=== PATIENT | female | born 1955 | race Caucasian/White ===

== ENCOUNTER 2022-08-15 14:36 | Inpatient (IN) | payer MEDICARE, MEDICAID ==
[~2022-08-15] VITALS: Ht 165.1 cm; Wt 61.7 kg
[2022-08-15] MEDS ORDERED: SODIUM CHLORIDE 0.9% 1,000 ML IV ONE (15:15)
[2022-08-15 15:57] LABS: HEMATOCRIT. 25.8 % (36.0-48.0); HEMOGLOBIN. 8.3 g/dL (12.0-16.0); MEAN CORPUSCULAR HEMOGLOBIN 29.8 pg (28.0-32.0); MEAN CORPUSCULAR VOLUME 92.4 fL (81.0-99.0); MEAN PLATELET VOLUME 7.2 fl (7.4-10.4); PLATELET 262 x1000/uL (130-400); RED BLOOD CELL COUNT 2.79 mill/uL (4.2-5.4); RED CELL DISTRIBUTION WIDTH 19.9 % (11.6-14.6)
[2022-08-15 16:03] LABS: CHLORIDE 106 mEq/L (98-107)
[2022-08-15 17:24] LABS: CLARITY URINE TURBID (CLEAR); COLOR URINE ORANGE (YELLOW); KETONES URINE TRACE (NEGATIVE); LEUKOCYTE ESTERASE URINE 2+ (NEGATIVE); NITRITE URINE NEGATIVE (NEGATIVE); OCCULT BLOOD URINE 3+ (NEGATIVE); PH URINE 5.5 (4.5-8.0); PROTEIN URINE 3+ (NEGATIVE); SPECIFIC GRAVITY URINE 1.011 (1.005-1.030); UROBILINOGEN URINE 0.2 E.U./dL (0.2-1.0)
[2022-08-15] MEDS ORDERED: SODIUM CHLORIDE 0.9% 1000ML BAG (SEPSIS BOLUS) IV ONE ×2 (17:45→18:30)
[2022-08-15] MEDS ORDERED: CEFTRIAXONE 1GM PREMIX 50 ML IV NR ×2 (17:45→18:30)
[2022-08-15 18:24] LABS: CHLORIDE 108 mEq/L (98-107)
[2022-08-15] MEDS ORDERED: AZITHROMYCIN 500MG/250ML 250 ML IV NR (18:30)
[2022-08-15 18:41] LABS: INR 1.2; PROTHROMBIN TIME 12.7 sec (9.6-11.0)
[2022-08-15] MEDS ORDERED: SODIUM CHLORIDE 0.9% 1,950 ML IV SCH (18:45)
[2022-08-15 20:00] LABS: PLATELET ESTIMATE NORMAL
[2022-08-15] MEDS ORDERED: CLONIDINE 0.1MG TABLET PO PRN (23:30)
[2022-08-16] VITALS (7 sets, daily range): BP systolic 109–144; BP diastolic 48–76
[2022-08-16 00:16] LABS: TOTAL IRON BINDING CAPACITY 91 ug/dL (250-450)
[2022-08-16] MEDS ORDERED: DEXTROSE 50% WATER 50ML SYRINGE IV PRN (01:00)
[2022-08-16] MEDS: ACETAMINOPHEN 325MG TABLET PO PRN (03:00)
[2022-08-16] MEDS: ZOLPIDEM TARTRATE 5MG TABLET PO PRN (03:35)
[2022-08-16] MEDS: SODIUM CHLORIDE 0.9% 1,000 ML IV SCH ×3 (05:13→17:40)
[2022-08-16] MEDS: BLOOD SUGAR DIAGNOSTIC STRIP TEST SCH ×4 (07:23→20:54)
[2022-08-16 08:06] LABS: BASOPHILS % 0.5 % (0.0-2.0); HEMATOCRIT. 23.1 % (36.0-48.0); HEMOGLOBIN. 7.6 g/dL (12.0-16.0); LYMPHOCYTES % 7.2 % (20.0-50.0); MEAN CORPUSCULAR VOLUME 90.6 fL (81.0-99.0); MEAN PLATELET VOLUME 7.1 fl (7.4-10.4); MONOCYTES % 5.6 % (2.0-8.0); NEUTROPHILS % 85.7 % (40.0-76.0); PLATELET 251 x1000/uL (130-400); RED BLOOD CELL COUNT 2.55 mill/uL (4.2-5.4); RED CELL DISTRIBUTION WIDTH 19.8 % (11.6-14.6)
[2022-08-16] MEDS: INSULIN LISPRO 100 UNITS/ML SUBCUT SCH ×4 (08:10→20:55)
[2022-08-16 08:15] LABS: CHLORIDE 110 mEq/L (98-107)
[2022-08-16] MEDS: PANTOPRAZOLE SODIUM 40 MG/VIAL IV SCH (08:18)
[2022-08-16] MEDS: ENOXAPARIN 30MG/0.3ML SYR SUBCUT SCH (08:18)
[2022-08-16 08:30] LABS: CREATINE KINASE 13 IU/L (26-192); CREATINE KINASE MB FRACTION < 1.0 ng/mL (0.5-3.6)
[2022-08-16] MEDS: METRONIDAZOLE 500 MG PREMIX 100 ML IV SCH ×2 (11:38→17:40)
[2022-08-16] MEDS: ONDANSETRON HCL 4MG/2ML INJ IV PRN (11:45)
[2022-08-16] MEDS: MORPHINE SULFATE 2 MG/ML CPJ (NOT FOR IM USE) IV PRN (11:46)
[2022-08-16] MEDS: LORAZEPAM 2MG/ML CPJ IV PRN (14:44)
[2022-08-16 15:53] LABS: CREATINE KINASE MB FRACTION 1.3 ng/mL (0.5-3.6)
[2022-08-16] MEDS ORDERED: ONDANSETRON HCL 4MG/2ML INJ IV PRN (16:00)
[2022-08-16] MEDS: AZITHROMYCIN 500 MG in DEXT 5% WATER 250 ML IV SCH (19:58)
[2022-08-16] MEDS: CEFTRIAXONE 1,000 MG in DEXTROSE 5% WATER 50 ML IV SCH (20:58)
[2022-08-17] VITALS: BP 114/61
[2022-08-17] MEDS: SODIUM CHLORIDE 0.9% 1,000 ML IV SCH ×3 (00:24→15:30)
[2022-08-17] MEDS: ACETAMINOPHEN 325MG TABLET PO PRN (00:29)
[2022-08-17] MEDS: METRONIDAZOLE 500 MG PREMIX 100 ML IV SCH ×3 (03:56→19:31)
[2022-08-17 04:00] VITALS: BP 110/60
[2022-08-17 05:33] LABS: BASOPHILS % 0.6 % (0.0-2.0); HEMOGLOBIN. 7.4 g/dL (12.0-16.0); LYMPHOCYTES % 9.2 % (20.0-50.0); MEAN CORPUSCULAR HEMOGLOBIN 32.1 pg (28.0-32.0); MEAN CORPUSCULAR VOLUME 90.4 fL (81.0-99.0); MEAN PLATELET VOLUME 7.4 fl (7.4-10.4); MONOCYTES % 7.4 % (2.0-8.0); NEUTROPHILS % 80.8 % (40.0-76.0); PLATELET 239 x1000/uL (130-400); RED CELL DISTRIBUTION WIDTH 19.6 % (11.6-14.6)
[2022-08-17 05:46] LABS: HEMATOCRIT. 20.8 % (36.0-48.0)
[2022-08-17] MEDS: MORPHINE SULFATE 2 MG/ML CPJ (NOT FOR IM USE) IV PRN ×3 (06:18→19:30)
[2022-08-17 06:27] LABS: FOLIC ACID (FOLATE) SERUM 6.5 ng/mL (>5.38)
[2022-08-17] MEDS: ONDANSETRON HCL 4MG/2ML INJ IV PRN ×2 (06:48→19:43)
[2022-08-17] MEDS: BLOOD SUGAR DIAGNOSTIC STRIP TEST SCH ×4 (07:54→21:09)
[2022-08-17 08:00] VITALS: BP 129/78
[2022-08-17] MEDS: INSULIN LISPRO 100 UNITS/ML SUBCUT SCH ×4 (08:10→21:00)
[2022-08-17] MEDS: PANTOPRAZOLE SODIUM 40 MG/VIAL IV SCH (09:46)
[2022-08-17] MEDS: LEVOTHYROXINE SODIUM 50MCG TABLET PO SCH (09:46)
[2022-08-17] MEDS: ENOXAPARIN 30MG/0.3ML SYR SUBCUT SCH (09:47)
[2022-08-17 10:49] LABS: CREATINE KINASE 11 IU/L (26-192)
[2022-08-17 12:00] VITALS: BP 127/76
[2022-08-17 13:31] LABS: HEPATITIS B SURFACE ANTIGEN NEGATIVE
[2022-08-17] MEDS ORDERED: NALOXONE HCL 0.4MG/ML VIAL IV PRN (14:45)
[2022-08-17 16:00] VITALS: BP 129/78
[2022-08-17] MEDS: AZITHROMYCIN 500 MG in DEXT 5% WATER 250 ML IV SCH (19:31)
[2022-08-17 20:00] VITALS: BP 111/50
[2022-08-17] MEDS: ZOLPIDEM TARTRATE 5MG TABLET PO PRN (21:09)
[2022-08-17] MEDS: CEFTRIAXONE 1,000 MG in DEXTROSE 5% WATER 50 ML IV SCH (21:09)
[2022-08-17] MEDS: LORAZEPAM 2MG/ML CPJ IV PRN (21:09)
[2022-08-18] VITALS: BP 109/60
[2022-08-18] MEDS: METRONIDAZOLE 500 MG PREMIX 100 ML IV SCH ×3 (00:58→20:58)
[2022-08-18] MEDS: SODIUM CHLORIDE 0.9% 1,000 ML IV SCH ×4 (00:58→23:48)
[2022-08-18 04:00] VITALS: BP 108/63
[2022-08-18 05:09] LABS: BASOPHILS % 0.7 % (0.0-2.0); EOSINOPHILS % 1.8 % (0.0-5.0); HEMATOCRIT. 21.1 % (36.0-48.0); LYMPHOCYTES % 7.7 % (20.0-50.0); MEAN CORPUSCULAR HEMOGLOBIN 30.6 pg (28.0-32.0); MEAN CORPUSCULAR VOLUME 93.5 fL (81.0-99.0); MEAN PLATELET VOLUME 7.2 fl (7.4-10.4); MONOCYTES % 6.9 % (2.0-8.0); NEUTROPHILS % 82.9 % (40.0-76.0); PLATELET 280 x1000/uL (130-400); RED BLOOD CELL COUNT 2.26 mill/uL (4.2-5.4); RED CELL DISTRIBUTION WIDTH 20.3 % (11.6-14.6)
[2022-08-18 05:21] LABS: HEMOGLOBIN. 6.9 g/dL (12.0-16.0)
[2022-08-18] MEDS: LEVOTHYROXINE SODIUM 50MCG TABLET PO SCH (08:00)
[2022-08-18] MEDS: INSULIN LISPRO 100 UNITS/ML SUBCUT SCH ×3 (08:10→20:50)
[2022-08-18] MEDS: BLOOD SUGAR DIAGNOSTIC STRIP TEST SCH ×3 (08:28→20:50)
[2022-08-18] MEDS: PANTOPRAZOLE SODIUM 40 MG/VIAL IV SCH (09:58)
[2022-08-18] MEDS: ENOXAPARIN 30MG/0.3ML SYR SUBCUT SCH (10:00)
[2022-08-18] MEDS: LORAZEPAM 2MG/ML CPJ IV PRN (10:27)
[2022-08-18] MEDS: QUETIAPINE FUMARATE 50MG TABLET PO SCH ×2 (14:54→21:38)
[2022-08-18 18:30] VITALS: BP 117/56
[2022-08-18 18:45] VITALS: BP 117/56
[2022-08-18 20:00] VITALS: BP 125/63
[2022-08-18] MEDS: VANCOMYCIN 1000MG/20ML ORAL SOLN PO SCH ×3 (20:56→23:47)
[2022-08-18] MEDS: AZITHROMYCIN 500 MG in DEXT 5% WATER 250 ML IV SCH (20:57)
[2022-08-18] MEDS: MORPHINE SULFATE 2 MG/ML CPJ (NOT FOR IM USE) IV PRN (22:13)
[2022-08-18 23:31] VITALS: BP 122/62
[2022-08-18] MEDS: CEFTRIAXONE 1,000 MG in DEXTROSE 5% WATER 50 ML IV SCH (23:50)
[2022-08-19] VITALS: BP 117/96
[2022-08-19] MEDS: METRONIDAZOLE 500 MG PREMIX 100 ML IV SCH ×3 (01:33→18:38)
[2022-08-19 03:38] LABS: BASOPHILS % 0.8 % (0.0-2.0); EOSINOPHILS % 2.1 % (0.0-5.0); HEMATOCRIT. 24.9 % (36.0-48.0); HEMOGLOBIN. 8.4 g/dL (12.0-16.0); LYMPHOCYTES % 13.7 % (20.0-50.0); MEAN CORPUSCULAR HEMOGLOBIN 30.6 pg (28.0-32.0); MEAN CORPUSCULAR VOLUME 90.2 fL (81.0-99.0); MEAN PLATELET VOLUME 7.1 fl (7.4-10.4); MONOCYTES % 9.2 % (2.0-8.0); NEUTROPHILS % 74.2 % (40.0-76.0); PLATELET 242 x1000/uL (130-400); RED BLOOD CELL COUNT 2.76 mill/uL (4.2-5.4); RED CELL DISTRIBUTION WIDTH 18.2 % (11.6-14.6)
[2022-08-19 04:00] VITALS: BP 106/58
[2022-08-19] MEDS: VANCOMYCIN 1000MG/20ML ORAL SOLN PO SCH ×3 (06:25→18:38)
[2022-08-19] MEDS: BLOOD SUGAR DIAGNOSTIC STRIP TEST SCH ×4 (06:49→21:10)
[2022-08-19] MEDS: LEVOTHYROXINE SODIUM 50MCG TABLET PO SCH (07:40)
[2022-08-19] MEDS: SODIUM CHLORIDE 0.9% 1,000 ML IV SCH ×2 (07:46→16:03)
[2022-08-19] MEDS: ACETAMINOPHEN 325MG TABLET PO PRN (07:47)
[2022-08-19] MEDS: PANTOPRAZOLE SODIUM 40 MG/VIAL IV SCH (07:57)
[2022-08-19] MEDS: INSULIN LISPRO 100 UNITS/ML SUBCUT SCH ×4 (07:57→21:00)
[2022-08-19 08:00] VITALS: BP 134/62
[2022-08-19] MEDS: QUETIAPINE FUMARATE 50MG TABLET PO SCH ×2 (08:29→21:10)
[2022-08-19 09:11] LABS: ANTI-NUCLEAR ANTIBODIES DIRECT Negative (Negative)
[2022-08-19 12:00] VITALS: BP 107/50
[2022-08-19] MEDS: MORPHINE SULFATE 2 MG/ML CPJ (NOT FOR IM USE) IV PRN ×2 (15:54→21:11)
[2022-08-19 16:00] VITALS: BP 154/79
[2022-08-19] MEDS: AZITHROMYCIN 500 MG in DEXT 5% WATER 250 ML IV SCH (19:55)
[2022-08-19] MEDS: IPRATROPIUM/ALBUTEROL 0.5-3(2.5)MG/3ML NEB HHN SCH (20:23)
[2022-08-19 20:37] VITALS: BP 128/80
[2022-08-19] MEDS: CEFTRIAXONE 1,000 MG in DEXTROSE 5% WATER 50 ML IV SCH (21:10)
[2022-08-20] MEDS: IPRATROPIUM/ALBUTEROL 0.5-3(2.5)MG/3ML NEB HHN SCH ×4 (00:07→12:00)
[2022-08-20] MEDS: VANCOMYCIN 1000MG/20ML ORAL SOLN PO SCH ×3 (00:19→12:00)
[2022-08-20] MEDS: METRONIDAZOLE 500 MG PREMIX 100 ML IV SCH ×2 (00:19→09:25)
[2022-08-20 00:32] VITALS: BP 117/59
[2022-08-20 04:00] VITALS: BP 125/55
[2022-08-20] MEDS: BLOOD SUGAR DIAGNOSTIC STRIP TEST SCH ×2 (06:32→12:40)
[2022-08-20 08:00] VITALS: BP 126/66
[2022-08-20] MEDS: INSULIN LISPRO 100 UNITS/ML SUBCUT SCH ×2 (08:03→13:10)
[2022-08-20] MEDS: PANTOPRAZOLE SODIUM 40 MG/VIAL IV SCH (09:24)
[2022-08-20] MEDS: QUETIAPINE FUMARATE 50MG TABLET PO SCH (09:25)
[2022-08-20] MEDS: LEVOTHYROXINE SODIUM 50MCG TABLET PO SCH (09:25)
[2022-08-20 09:44] LABS: BASOPHILS % 0.6 % (0.0-2.0); EOSINOPHILS % 1.3 % (0.0-5.0); HEMATOCRIT. 25.9 % (36.0-48.0); HEMOGLOBIN. 8.7 g/dL (12.0-16.0); MEAN CORPUSCULAR HEMOGLOBIN 30.7 pg (28.0-32.0); MEAN CORPUSCULAR VOLUME 91.7 fL (81.0-99.0); MONOCYTES % 9.6 % (2.0-8.0); NEUTROPHILS % 75.5 % (40.0-76.0); PLATELET 266 x1000/uL (130-400); RED BLOOD CELL COUNT 2.82 mill/uL (4.2-5.4); RED CELL DISTRIBUTION WIDTH 18.7 % (11.6-14.6)
[2022-08-20] MEDS ORDERED: QUET50TA PO (11:31)
[2022-08-20] MEDS ORDERED: LEVO50TA8 PO (11:31)
[2022-08-20] MEDS ORDERED: LEVO-65 MT (11:31)
[2022-08-20] MEDS ORDERED: METR-167 MT (11:31)
[2022-08-20 11:34] VITALS: BP 126/66
[2022-08-20 12:16] VITALS: BP 127/77
[2022-08-20] MEDS ORDERED: METRONIDAZOLE 500MG TABLET PO SCH (18:00)
[2022-08-20] MEDS ORDERED: AZITHROMYCIN 500 MG TABLET PO SCH (18:00)
== END 2022-08-20 13:20 | disposition home health service (06) | DRG 871 ==
LOC: ER 14:36 → 7WST 20:43 → EDBEDREQ 20:52
PROVIDERS: ADMIT Internal Medicine; ATTEND Internal Medicine
PROC: 30233N1 Transfusion of Nonautologous Red Blood Cells into Peripheral Vein, Percutaneous Approach (ICD-10-PCS; principal; 2022-08-18)
DX: A41.9 Sepsis, unspecified organism (principal); E43 Unspecified severe protein-calorie malnutrition; N17.0 Acute kidney failure with tubular necrosis; J18.9 Pneumonia, unspecified organism; A04.72 Enterocolitis due to Clostridium difficile, not specified as recurrent; N39.0 Urinary tract infection, site not specified; Z20.822 Contact with and (suspected) exposure to COVID-19; I50.9 Heart failure, unspecified; D50.0 Iron deficiency anemia secondary to blood loss (chronic); E87.6 Hypokalemia; E03.9 Hypothyroidism, unspecified; F41.9 Anxiety disorder, unspecified; I11.0 Hypertensive heart disease with heart failure; Z79.899 Other long term (current) drug therapy; Z68.22 Body mass index [BMI] 22.0-22.9, adult; G73.7 Myopathy in diseases classified elsewhere
CPT/HCPCS: 36415; 71045; 71250; 76770; 80048; 80053; 81003; 82270; 82550; 82553; 82607; 82728; 82746; 82962; 83540; 83550; 83605; 84145; 84443; 84484; 85018; 85025; 85044; 86038; 86160; 86705; 86709; 86803; 86850; 86900; 86920; 87015; 87045; 87340; 87426; 87427; 87449; 87493; 89055; 93005; 93306; 93970; 94640; 97162; 99291; C9113; J0456; J0696; J1650; J1815; J2060; J2270; J2405; J3370; J3490; J7030; J7060; P9016

== ENCOUNTER 2022-09-01 21:22 | Emergency (ER) | payer MEDICARE, MEDICAID ==
[~2022-09-01] VITALS: Ht 160 cm; Wt 56.0 kg
[~2022-09-01 21:22] MED LIST: LEVO-65 MT; LEVO50TA8 PO; METR-167 MT; QUET50TA PO
[2022-09-02] MEDS ORDERED: ONDANSETRON 4MG ODT PO STA (00:01)
[2022-09-02] MEDS ORDERED: LORAZEPAM 0.5MG TABLET PO ONE ×2 (00:15→08:45)
[2022-09-02 00:41] LABS: HEMATOCRIT. 31.1 % (36.0-48.0); HEMOGLOBIN. 10.2 g/dL (12.0-16.0); MEAN CORPUSCULAR HEMOGLOBIN 29.5 pg (28.0-32.0); MEAN CORPUSCULAR VOLUME 90.4 fL (81.0-99.0); MEAN PLATELET VOLUME 6.7 fl (7.4-10.4); PLATELET 507 x1000/uL (130-400); RED BLOOD CELL COUNT 3.44 mill/uL (4.2-5.4); RED CELL DISTRIBUTION WIDTH 17.8 % (11.6-14.6)
[2022-09-02 01:28] LABS: CLARITY URINE CLEAR (CLEAR); COLOR URINE ORANGE (YELLOW); KETONES URINE NEGATIVE (NEGATIVE); LEUKOCYTE ESTERASE URINE TRACE (NEGATIVE); NITRITE URINE NEGATIVE (NEGATIVE); OCCULT BLOOD URINE 3+ (NEGATIVE); PH URINE 6.5 (4.5-8.0); PROTEIN URINE 3+ (NEGATIVE); SPECIFIC GRAVITY URINE 1.011 (1.005-1.030); UROBILINOGEN URINE 0.2 E.U./dL (0.2-1.0)
[2022-09-02 01:30] LABS: CHLORIDE 106 mEq/L (98-107)
[2022-09-02 08:29] LABS: NUCLEATED RED BLOOD CELLS 1 /100 WBC; PLATELET ESTIMATE INCREASED
[2022-09-02 11:30] VITALS: BP 120/57
== END 2022-09-02 11:33 | disposition home or self-care (01) ==
LOC: ER 21:22
DX: R11.0 Nausea (principal); F41.9 Anxiety disorder, unspecified; N18.6 End stage renal disease; I50.9 Heart failure, unspecified
CPT/HCPCS: 36415; 71045; 80053; 81003; 83880; 85025; 93005; 99285; Q0162